=== PATIENT | male | born 1980 ===

== ENCOUNTER 2017-05-25 18:42 | Emergency (ER) | payer OTHER, BC ==
[2017-05-25 18:48] VITALS: BP 126/75; PULSE 101; RESP 20; TEMP 98.3; O2SAT 98
[2017-05-25] MEDS ORDERED: TDAP Vaccine 0.5 mL Syr IM ONE (20:11)
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
[2017-05-26 12:12] LABS: HEPATITIS B SURFACE AG NEGATIVE (NEGATIVE)
[2017-05-26 12:17] LABS: HEPATITIS B CORE AB NEGATIVE (NEGATIVE)
== END 2017-05-25 22:20 | disposition home or self-care (01) ==
LOC: H.ER 18:42
DX: T14.8 Other injury of unspecified body region (principal); Y04.1XXA Assault by human bite, initial encounter; Y99.0 Civilian activity done for income or pay